=== PATIENT | male | born 1995 | race Two or more races ===

== ENCOUNTER 2020-04-10 16:57 | Emergency (ER) | payer MEDICAID ==
[~2020-04-10] VITALS: Ht 172.7 cm; Wt 68.0 kg
[2020-04-10] MEDS ORDERED: IBUPROFEN 600MG TABLET PO STA (17:41)
[2020-04-10 19:01] VITALS: BP 128/76
== END 2020-04-10 19:01 | disposition home or self-care (01) ==
LOC: ER 16:57
DX: S90.32XA Contusion of left foot, initial encounter (principal); S90.122A Contusion of left lesser toe(s) without damage to nail, initial encounter; W22.8XXA Striking against or struck by other objects, initial encounter; Y93.89 Activity, other specified; Y92.89 Other specified places as the place of occurrence of the external cause; Y99.8 Other external cause status
CPT/HCPCS: 73630; 99283

== ENCOUNTER 2020-06-12 00:33 | Emergency (ER) | payer MEDICAID ==
[~2020-06-12] VITALS: Ht 170.2 cm; Wt 50.0 kg
[2020-06-12] MEDS ORDERED: KETOROLAC 60MG/2ML VIAL IM STA (02:14)
[2020-06-12] MEDS ORDERED: ONDANSETRON HCL 4MG/2ML INJ IM STA (02:14)
[2020-06-12] MEDS ORDERED: FAMOTIDINE 20MG TABLET PO ONE (02:15)
[2020-06-12 02:45] LABS: BASOPHILS % 0.6 % (0.0-2.0); EOSINOPHILS % 0.4 % (0.0-5.0); HEMATOCRIT. 48.1 % (42.0-52.0); HEMOGLOBIN. 16.4 g/dL (14.0-18.0); MEAN CORPUSCULAR HEMOGLOBIN 28.9 pg (28.0-32.0); MEAN CORPUSCULAR VOLUME 84.9 fL (80.0-94.0); MEAN PLATELET VOLUME 8.5 fl (7.4-10.4); MONOCYTES % 7.1 % (2.0-8.0); NEUTROPHILS % 57.9 % (40.0-76.0); PLATELET 233 x1000/uL (130-400); RED BLOOD CELL COUNT 5.66 mill/uL (4.7-6.1); RED CELL DISTRIBUTION WIDTH 12.8 % (11.6-14.6)
[2020-06-12 02:52] LABS: CHLORIDE 105 mEq/L (98-107)
[2020-06-12 03:32] LABS: CLARITY URINE CLEAR (CLEAR); COLOR URINE YELLOW (YELLOW); KETONES URINE NEGATIVE (NEGATIVE); LEUKOCYTE ESTERASE URINE NEGATIVE (NEGATIVE); NITRITE URINE NEGATIVE (NEGATIVE); OCCULT BLOOD URINE NEGATIVE (NEGATIVE); PROTEIN URINE NEGATIVE (NEGATIVE); SPECIFIC GRAVITY URINE 1.018 (1.005-1.030)
[2020-06-12 03:45] VITALS: BP 126/72
== END 2020-06-12 03:47 | disposition home or self-care (01) ==
LOC: ER 00:33
DX: K29.00 Acute gastritis without bleeding (principal); R10.13 Epigastric pain; F12.10 Cannabis abuse, uncomplicated; F17.210 Nicotine dependence, cigarettes, uncomplicated
CPT/HCPCS: 36415; 80053; 81003; 83690; 85025; 96372; 99284; J1885; J2405

== ENCOUNTER 2020-06-15 19:30 | Emergency (ER) | payer MEDICAID ==
[~2020-06-15] VITALS: Ht 172.7 cm; Wt 48.0 kg
[2020-06-15 19:32] VITALS: BP 138/97
== END 2020-06-15 23:25 | disposition left against medical advice (07) ==
LOC: ER 19:30
DX: R11.2 Nausea with vomiting, unspecified (principal); Z53.21 Procedure and treatment not carried out due to patient leaving prior to being seen by health care provider
CPT/HCPCS: 93005

== ENCOUNTER 2020-06-23 15:48 | Emergency (ER) | payer MEDICAID ==
[~2020-06-23] VITALS: Ht 167.6 cm; Wt 64.0 kg
[2020-06-23] MEDS ORDERED: KETOROLAC 60MG/2ML VIAL IM ONE (16:30)
[2020-06-23 16:52] LABS: CLARITY URINE CLEAR (CLEAR); COLOR URINE YELLOW (YELLOW); KETONES URINE NEGATIVE (NEGATIVE); LEUKOCYTE ESTERASE URINE NEGATIVE (NEGATIVE); NITRITE URINE NEGATIVE (NEGATIVE); OCCULT BLOOD URINE NEGATIVE (NEGATIVE); PH URINE 7.5 (4.5-8.0); PROTEIN URINE NEGATIVE (NEGATIVE); SPECIFIC GRAVITY URINE 1.009 (1.005-1.030); UROBILINOGEN URINE 0.2 E.U./dL (0.2-1.0)
[2020-06-23 18:35] VITALS: BP 156/88
== END 2020-06-23 18:36 | disposition home or self-care (01) ==
LOC: ER 15:48
DX: M54.5 Low back pain (principal); R11.2 Nausea with vomiting, unspecified
CPT/HCPCS: 81003; 96372; 99283; J1885

== ENCOUNTER 2020-07-05 03:16 | Emergency (ER) | payer MEDICAID ==
[~2020-07-05] VITALS: Ht 172.7 cm; Wt 65.0 kg
[2020-07-05 03:40] VITALS: BP 142/100
[2020-07-05] MEDS ORDERED: ACETAMINOPHEN 500MG TABLET PO ONE (03:45)
[2020-07-05] MEDS ORDERED: MAGNESIUM/ALUMINUM HYDROXIDE/SIMETHICONE 30ML UDC PO ONE (06:00)
== END 2020-07-05 06:25 | disposition home or self-care (01) ==
LOC: ER 03:16
DX: Z20.828 Contact with and (suspected) exposure to other viral communicable diseases (principal)
CPT/HCPCS: 99282

== ENCOUNTER 2020-07-05 06:37 | Emergency (ER) | payer MEDICAID ==
[~2020-07-05] VITALS: Ht 170.2 cm; Wt 65.0 kg
[2020-07-05] MEDS ORDERED: IBUPROFEN 600MG TABLET PO STA (08:10)
[2020-07-05] MEDS ORDERED: MAGNESIUM/ALUMINUM HYDROXIDE/SIMETHICONE 30ML UDC PO STA (08:10)
[2020-07-05 08:54] LABS: BASOPHILS % 0.5 % (0.0-2.0); HEMOGLOBIN. 15.4 g/dL (14.0-18.0); LYMPHOCYTES % 15.3 % (20.0-50.0); MEAN CORPUSCULAR HEMOGLOBIN 29.3 pg (28.0-32.0); MEAN CORPUSCULAR VOLUME 83.9 fL (80.0-94.0); MEAN PLATELET VOLUME 8.3 fl (7.4-10.4); NEUTROPHILS % 74.2 % (40.0-76.0); PLATELET 308 x1000/uL (130-400); RED BLOOD CELL COUNT 5.25 mill/uL (4.7-6.1); RED CELL DISTRIBUTION WIDTH 13.2 % (11.6-14.6)
[2020-07-05 09:01] LABS: CHLORIDE 106 mEq/L (98-107)
[2020-07-05 09:05] LABS: ETHANOL BLOOD < 10 mg/dL
[2020-07-05 13:57] LABS: CLARITY URINE CLEAR (CLEAR); COLOR URINE YELLOW (YELLOW); KETONES URINE 1+ (NEGATIVE); LEUKOCYTE ESTERASE URINE NEGATIVE (NEGATIVE); NITRITE URINE NEGATIVE (NEGATIVE); OCCULT BLOOD URINE NEGATIVE (NEGATIVE); PH URINE 8.5 (4.5-8.0); PROTEIN URINE TRACE (NEGATIVE)
[2020-07-05 14:14] LABS: *AMPHETAMINES SCREEN URINE PRESUMTIVE POSITIVE (NEGATIVE); *BARBITURATES SCREEN URINE NEGATIVE (NEGATIVE); *BENZODIAZEPINES SCREEN URINE NEGATIVE (NEGATIVE); *COCAINE SCREEN URINE PRESUMTIVE POSITIVE (NEGATIVE)
[2020-07-05 14:15] LABS: CANNABINOID URINE SCREEN PRESUMTIVE POSITIVE (NEGATIVE); METHADONE URINE SCREEN NEGATIVE (NEGATIVE); OPIATES URINE SCREEN NEGATIVE (NEGATIVE); PHENCYCLIDINE URINE SCREEN NEGATIVE (NEGATIVE)
[2020-07-05 20:05] VITALS: BP 153/88
== END 2020-07-05 20:12 | disposition home or self-care (01) ==
LOC: ER 06:37
DX: Z03.818 Encounter for observation for suspected exposure to other biological agents ruled out (principal); R10.11 Right upper quadrant pain; F19.10 Other psychoactive substance abuse, uncomplicated
CPT/HCPCS: 36415; 74176; 76700; 80053; 80305; 80320; 81003; 85025; 87635; 93005; 99285; G0480

== ENCOUNTER 2020-07-25 15:44 | Emergency (ER) | payer MEDICAID ==
[~2020-07-25] VITALS: Ht 172.7 cm; Wt 60.0 kg
[2020-07-25 16:12] VITALS: BP 126/76
[2020-07-25 17:21] LABS: CLARITY URINE CLEAR (CLEAR); COLOR URINE YELLOW (YELLOW); KETONES URINE NEGATIVE (NEGATIVE); LEUKOCYTE ESTERASE URINE NEGATIVE (NEGATIVE); NITRITE URINE NEGATIVE (NEGATIVE); OCCULT BLOOD URINE NEGATIVE (NEGATIVE); PROTEIN URINE NEGATIVE (NEGATIVE); UROBILINOGEN URINE 0.2 E.U./dL (0.2-1.0)
[2020-07-25 17:30] LABS: *BARBITURATES SCREEN URINE NEGATIVE (NEGATIVE); *BENZODIAZEPINES SCREEN URINE NEGATIVE (NEGATIVE); *COCAINE SCREEN URINE NEGATIVE (NEGATIVE); CANNABINOID URINE SCREEN NEGATIVE (NEGATIVE); METHADONE URINE SCREEN NEGATIVE (NEGATIVE); OPIATES URINE SCREEN NEGATIVE (NEGATIVE); PHENCYCLIDINE URINE SCREEN NEGATIVE (NEGATIVE)
[2020-07-25 17:31] LABS: *AMPHETAMINES SCREEN URINE NEGATIVE (NEGATIVE)
[2020-07-25 18:01] LABS: BASOPHILS % 0.7 % (0.0-2.0); EOSINOPHILS % 0.2 % (0.0-5.0); HEMATOCRIT. 43.1 % (42.0-52.0); HEMOGLOBIN. 14.5 g/dL (14.0-18.0); LYMPHOCYTES % 37.8 % (20.0-50.0); MEAN CORPUSCULAR HEMOGLOBIN 28.9 pg (28.0-32.0); MEAN CORPUSCULAR VOLUME 85.7 fL (80.0-94.0); MEAN PLATELET VOLUME 8.4 fl (7.4-10.4); NEUTROPHILS % 54.3 % (40.0-76.0); PLATELET 220 x1000/uL (130-400); RED BLOOD CELL COUNT 5.03 mill/uL (4.7-6.1); RED CELL DISTRIBUTION WIDTH 13.4 % (11.6-14.6)
[2020-07-25 18:14] LABS: CHLORIDE 108 mEq/L (98-107)
[2020-07-25] MEDS ORDERED: PROT40 MT ×2 (19:08→19:10)
[2020-07-25] MEDS ORDERED: MAG355OR21 MT ×2 (19:08→19:09)
== END 2020-07-25 19:23 | disposition home or self-care (01) ==
LOC: ER 15:44
DX: R10.11 Right upper quadrant pain (principal)
CPT/HCPCS: 36415; 80048; 80076; 80305; 81003; 85025; 93005; 99283